=== PATIENT | male | born 1985 | race Caucasian/White ===

== ENCOUNTER 2018-08-16 17:02 | Emergency (ER) | payer SELFPAY ==
[~2018-08-16] VITALS: Ht 177.8 cm; Wt 74.0 kg
[2018-08-16 17:04] VITALS: BP 114/68; PULSE 83; RESP 19; Ht 177.8 cm; Wt 74.0 kg
== END 2018-08-16 19:00 | disposition left against medical advice (07) ==
LOC: FTE 17:02
DX: Z53.21 Procedure and treatment not carried out due to patient leaving prior to being seen by health care provider (principal)